=== PATIENT | male | born 1990 | race African-American/Black ===

== ENCOUNTER 2021-04-28 19:19 | Emergency (ER) | payer OTHER ==
[~2021-04-28] VITALS: Ht 180.3 cm; Wt 94.1 kg
[2021-04-28 19:40] VITALS: BP 135/85
[2021-04-28] MEDS ORDERED: KETOROLAC 60 MG/2 ML VIAL. IM ONE (19:45)
[2021-04-28] MEDS ORDERED: ACETAMINOPHEN 500 MG TABLET PO ONE (19:45)
--- NOTE | 2021-04-28 19:54 | EKG ---
[address] [address] Test Date: 2021-04-28 Test Time: 19:42:29 Pat Name: SUZY DYSON Department: Room: Gender: M [employer] Official: : [id number] Requested By: TERRI WHITEHEAD Order Number: [id number] Reading MD: Artur Murphy MD Measurements Intervals [place] Rate: 57 P: 49 IA: 150 QRS: 43 QRSD: 102 T: 12 QT: 392 QTc: 384 Interpretive Statements SINUS RHYTHM Electronically Signed On 04-29-2021 9:47:38 LOOM CHECKER by Artur Murphy MD
--- NOTE | 2021-04-28 19:55 | PHYS DOC ---
Past History Alcohol Use: None Adult General Chief Complaint Chief Complaint: CHEST PAIN HPI HPI Patient is a 30-year-old male who presents with chest wall pain that started yesterday, worse with twisting motions better with rest. Denies any medical problems, cardiac history or early family cardiac history. States it is reproducible if you push on the left side. Denies any recent traumas, travels, illness, fevers, cough, dyspnea on exertion, orthopnea, PND or edema, cold/flu/COVID symptoms, known ill contacts. Did not take any medications. States he is eating and drinking normally for him. States he is making urine and stool normally for him with no blood in either. Denies any alcohol or drug use. Review of Systems Review of Systems Review of systems otherwise unremarkable except noted in HPI Current Medications Current Medications Current Medications Medications (Trade) Dose Ordered Sig/Tasha Start Time Stop Time Status Last Admin Dose Admin Acetaminophen (Tylenol) 1,000 mg 1X ONCE 04/28/21 19:45 04/28/21 19:46 DC Ketorolac Tromethamine (Toradol Im) 30 mg 1X ONCE 04/28/21 19:45 04/28/21 19:46 DC Allergies Allergies Allergies Coded Allergies Type Severity Reaction Last Updated Verified No Known Drug Allergies 04/28/21 No Physical Exam Physical Exam Constitutional: Well developed, well nourished, no acute distress, non-toxic appearance. [] HENT: Normocephalic, atraumatic, Neck: Normal range of motion, no tenderness, supple, Cardiovascular:Heart rate regular rhythm, no murmur [] Lungs & Thorax: No respiratory distress, mild left-sided chest wall pain on palpation with no obvious deformities or bruising Abdomen: No abdominal pain Skin: Warm, dry, no erythema, no rash. [] Back: No tenderness, Extremities: No tenderness, no cyanosis, no clubbing, ROM intact, no edema. [] Neurologic: Alert and oriented X 3, normal motor function, normal sensory function, no focal deficits noted. [] Psychologic: Affect normal, judgement normal, mood normal. [] EKG EKG [] Radiology/Procedures Radiology/Procedures [] Heart Score C/O Chest Pain: N/A Risk Factors: Risk Factors: DM, Current or recent (<one month) smoker, HTN, HLP, family history of CAD, obesity. Risk Scores: Risk Factors: DM, Current or recent (<one month) smoker, HTN, HLP, family history of CAD, obesity. Course & Med Decision Making Course & Med Decision Making Patient is a 30-year-old male who presents with chest wall pain for 2 days Vital signs nonconcerning. Physical exam noted above. Given pain medication and ice pack. EKG with a rate of 57, QRS 102, QTc of 3-4, no STEMI. Discussed differential with patient. Discussed symptom management at home. Advised to follow-up with primary care physician in the morning Gave return precautions to the ED. Patient grateful, verbalized understanding and agreed with plan of discharge. [] Dragon Disclaimer Dragon Disclaimer This electronic medical record was generated, in whole or in part, using a voice recognition dictation system. Departure Departure: Impression: Primary Impression: Chest wall pain Disposition: HOME / SELF CARE / HOMELESS Condition: STABLE Referrals: PCP,UNKNOWN (PCP) THI MCNEILL MD Patient Instructions: Chest Pain (Nonspecific) Additional Instructions: Thank you for coming into the emergency department tonight and allowing us to take care of you. Please read the attached information carefully to go over things we discussed. You can use Tylenol, ibuprofen, Benadryl and ice as needed for symptom control at home. Although your history and exam are suggestive of a musculoskeletal source, that does not rule out completely something related to your heart or your lungs. Is very important that you follow-up in the morning with your primary care physician update on your ED visit and set up a follow-up appointment. Please come back to the emergency department immediately with any other new or concerning symptoms that we discussed. TERRI WHITEHEAD MD Apr 28, 2021 19:55
--- NOTE | 2021-04-28 20:40 | RAD ---
Exam: Chest one view INDICATION: Chest wall pain TECHNIQUE: Frontal view of the chest Comparisons: None FINDINGS: The cardiomediastinal silhouette and pulmonary vessels are within normal limits. The lung and pleural spaces are clear. IMPRESSION: No acute cardiopulmonary process. Electronically signed by: Mercedez Sanchez MD (04/28/2021 8:38 PM) ADRIANA
== END 2021-04-28 20:49 | disposition home or self-care (01) ==
LOC: ER 19:19
DX: R07.89 Other chest pain (principal)
CPT/HCPCS: 71045; 93005; 99283